=== PATIENT | female | born 1950 | race Caucasian/White ===

== ENCOUNTER → 2017-02-13 | Outpatient (CLI) | payer MEDICARE ==
--- NOTE | 2017-02-13 09:44 | BD ---
EXAMINATION TYPE: MG DEXA axial skeleton. DATE OF EXAM: 02/13/2017 9:06 AM COMPARISON: Prior DEXA bone scan January 26, 2015 CLINICAL HISTORY: Postmenopausal female Height: 61.7 IN Weight: 160 LBS FRAX RISK QUESTIONS: Alcohol (3 or more units per day): NO Family History (Parent hip fracture): NO Glucocorticoids (More than 3mos): NO (Ex: prednisone, prednisolone, methylprednisolone, dexamethasone, and hydrocortisone). History of Fracture in Adulthood: NO Secondary Osteoporosis: NO 1. Type 1 Diabetes: NO 2. Hyperthyroidism: NO 3. Menopause before 45: NO 4. Malnutrition: NO 5. Chronic liver disease: NO Rheumatoid Arthritis: NO Current Tobacco Use: NO RISK FACTORS HISTORY OF: Active: YES Postmenopausal woman: AGE 50 MEDICATIONS: Additional Medications: CALCIUM, VIT D, HIGH BLOOD PRESSURE MEDS EXAM MEASUREMENTS: Bone mineral densitometry was performed using the [employer] System. Bone mineral density as measured about the Lumbar spine is: ----- L1-L4(G/cm2): 1.101 T Score Values are as follows: ----- L2: -1.7 ----- L3: 0.3 ----- L4: 0.2 ----- L1-L4: -0.7 Bone mineral density has: Decreased -1.5% since study of: 01/26/2015 Bone mineral density about the R hip (g/cm2): 0.967 Bone mineral density about the L hip (g/cm2): 0.933 T Score values are as follows: -----R Neck: -0.5 -----L Neck: -0.8 -----R Intertrochanter: 0.3 -----L Intertrochanter: -0.1 Bone mineral density has: Decreased -4.3% since study of: 01/26/2015 IMPRESSION: Osteopenia (T Score between -2.5 and -1 as noted by T score values remains present at 2 consecutive l evels in the low back. Bone density is overall slightly decreased or diminished from prior exam. Ther e remains slightly increased risk of fracture and the patient may be considered for treatment. Re-Scr een 1-2 years. NOTE: T-SCORE=SD OF THE YOUNG ADULT MEAN.
--- NOTE | 2017-02-13 11:05 | MM ---
Reason for exam: screening (asymptomatic). Last mammogram was performed 6 months ago. History: Patient is postmenopausal and has history of other cancer at age 59. Physical Findings: A clinical breast exam by your physician is recommended on an annual basis and results should be correlated with mammographic findings. MG 3D Screening Mammo W/Cad Bilateral CC and MLO view(s) were taken. Prior study comparison: August 14, 2016, right breast MG 3d diag mammo w/cad RT. February 09, 2016, bilateral MG 3d screening mammo w/cad. There are scattered fibroglandular densities. Finding: There are typically benign round calcifications in both breasts. There is a chronic nodularity in the right breast. There is no discrete abnormality. ASSESSMENT: Benign, BI-RAD 2 RECOMMENDATION: Routine screening mammogram of both breasts in 1 year.
== END ==
LOC: RADMAMWWP 08:19
PROVIDERS: ATTEND Family Medicine
DX: Z12.31 Encounter for screening mammogram for malignant neoplasm of breast (principal); M85.88 Other specified disorders of bone density and structure, other site; Z13.820 Encounter for screening for osteoporosis
CPT/HCPCS: 77080; 77063; G0202

== ENCOUNTER → 2018-04-05 | Outpatient (CLI) | payer MEDICARE ==
--- NOTE | 2018-04-08 10:19 | MM ---
Reason for exam: screening (asymptomatic). Last mammogram was performed 1 year and 2 months ago. History: Patient is postmenopausal and has history of other cancer at age 59. Physical Findings: A clinical breast exam by your physician is recommended on an annual basis and results should be correlated with mammographic findings. MG Screening Mammo w CAD Bilateral CC and MLO view(s) were taken. Prior study comparison: February 13, 2017, bilateral MG 3d screening mammo w/cad. August 14, 2016, right breast MG 3d diag mammo w/cad RT. There are scattered fibroglandular densities. There is a stable right lower inner quadrant mass back to 2016. Benign calcifications in the right retroareolar breast. No suspicious abnormality. No significant changes when compared with prior studies. ASSESSMENT: Benign, BI-RAD 2 RECOMMENDATION: Routine screening mammogram of both breasts in 1 year.
== END | disposition home or self-care (01) ==
LOC: RADMAMWWP 08:38
PROVIDERS: ATTEND Family Medicine
DX: Z12.31 Encounter for screening mammogram for malignant neoplasm of breast (principal)
CPT/HCPCS: 77067

== ENCOUNTER → 2019-04-08 | Outpatient (CLI) | payer MEDICARE ==
--- NOTE | 2019-04-09 08:35 | MM ---
Reason for exam: screening (asymptomatic). Last mammogram was performed 1 year ago. History: Patient is postmenopausal and has history of other cancer at age 59. Physical Findings: A clinical breast exam by your physician is recommended on an annual basis and results should be correlated with mammographic findings. MG Screening Mammo w CAD Bilateral CC and MLO view(s) were taken. Prior study comparison: April 05, 2018, bilateral MG screening mammo w CAD. February 13, 2017, bilateral MG 3d screening mammo w/cad. There are scattered fibroglandular densities. There are benign appearing round calcifications bilaterally. There is no discrete abnormality. ASSESSMENT: Benign, BI-RAD 2 RECOMMENDATION: Routine screening mammogram of both breasts in 1 year.
== END ==
LOC: RADMAMWWP 09:00
PROVIDERS: ATTEND Family Medicine
DX: Z12.31 Encounter for screening mammogram for malignant neoplasm of breast (principal)
CPT/HCPCS: 77067

== ENCOUNTER → 2019-04-17 | Outpatient (CLI) | payer MEDICARE ==
--- NOTE | 2019-04-17 12:16 | BD ---
EXAMINATION TYPE: Axial Bone Density DATE OF EXAM: 04/17/2019 COMPARISON: 2017 CLINICAL HISTORY: Postmenopausal female Height: 61.75 Weight: 176 FRAX RISK QUESTIONS: Alcohol (3 or more units per day): no Family History (Parent hip fracture): n0 Glucocorticoids (More than 3mos): no (Ex: prednisone, prednisolone, methylprednisolone, dexamethasone, and hydrocortisone). History of Fracture in Adulthood: no Secondary Osteoporosis: 1. Type 1 Diabetes: no 2. Hyperthyroidism: no 3. Menopause before 45: no 4. Malnutrition: no 5. Chronic liver disease: no Rheumatoid Arthritis: no Current Tobacco Use: no RISK FACTORS HISTORY OF: Family History of Osteoporosis: Active: yes Diet low in dairy products/other sources of calcium: no Postmenopausal woman: yes Take estrogen and/or progesterone medications: no Lost more than 2 inches in height since high school: unsure Frequent falls: no Poor Health: no Hyperparathyroidism: no Adrenal Insufficiency: no MEDICATIONS: Prednisone or other steroids: no Thyroid Medications:no Osteoporosis Medications: YES Which medication: patient cannot recall How Long: since last bone density study Additional Medications: calcium & Vitamin D, blood pressure med Additional History: EXAM MEASUREMENTS: Bone mineral densitometry was performed using the [employer] System. Bone mineral density as measured about the Lumbar spine is: ----- L1-L4(G/cm2): 1.135 T Score Values are as follows: ----- L2: -1.3 ----- L3: 0.1 ----- L4: 0.7 ----- L1-L4: -0.4 Bone mineral density has: Increased 2.4% since study of: 02/13/2017 Bone mineral density about the R hip (g/cm2): 0.991 Bone mineral density about the L hip (g/cm2): 1.029 T Score values are as follows: -----R Neck: -0.3 -----L Neck: -0.1 -----R Total: 0.7 -----L Total: 0.5 Bone mineral density has: Increased 3.8% since study of: 02/13/2017 IMPRESSION: Normal (Values between +1 and -1 indicate normal bone mass). Consider repeating this study in 5 year s or sooner if there is some new clinical indication. NOTE: T-SCORE=SD OF THE YOUNG ADULT MEAN.
== END | disposition home or self-care (01) ==
LOC: RADBDWWP 09:08
PROVIDERS: ATTEND Family Medicine
DX: M85.88 Other specified disorders of bone density and structure, other site (principal)
CPT/HCPCS: 77080

== ENCOUNTER → 2020-09-02 | Outpatient (CLI) | payer MEDICARE ==
--- NOTE | 2020-09-02 17:44 | XR ---
EXAMINATION TYPE: XR ribs LT w pa chest xray DATE OF EXAM: 09/02/2020 CLINICAL HISTORY: [id number] LT RIB INJURY. Pain of the anterior mid and lower ribs after fall. TECHNIQUE: Frontal view of the chest and dedicated views of the left ribs obtained COMPARISON: None FINDINGS: The cardiomediastinal silhouette is within normal limits for size. Pulmonary vasculature i s normal. There is no focal air space opacity, pleural effusion, or pneumothorax seen. Degenerative c hanges of the spine. There may be nondisplaced rib fractures of left ribs 5 and 6 laterally. IMPRESSION: Possible nondisplaced rib fractures of left ribs 5 and 6 laterally.
== END | disposition home or self-care (01) ==
LOC: RADXRYALE 14:25
PROVIDERS: ATTEND Family Medicine
DX: R07.82 Intercostal pain (principal)

== ENCOUNTER → 2021-05-05 | Outpatient (CLI) | payer MEDICARE ==
--- NOTE | 2021-05-06 14:21 | MM ---
Reason for exam: screening (asymptomatic). Last mammogram was performed 2 years and 1 month ago. History: Patient is postmenopausal and has history of other cancer at age 59. Physical Findings: A clinical breast exam by your physician is recommended on an annual basis and results should be correlated with mammographic findings. MG Screening Mammo w CAD Bilateral CC and MLO view(s) were taken. Prior study comparison: April 08, 2019, bilateral MG screening mammo w CAD. April 05, 2018, bilateral MG screening mammo w CAD. There are scattered fibroglandular densities. There is no discrete abnormality. No significant changes when compared with prior studies. ASSESSMENT: Negative, BI-RAD 1 RECOMMENDATION: Routine screening mammogram of both breasts in 1 year.
== END | disposition home or self-care (01) ==
LOC: RADMAMWWP 08:36
PROVIDERS: ATTEND Family Medicine
DX: Z12.31 Encounter for screening mammogram for malignant neoplasm of breast (principal); Z78.0 Asymptomatic menopausal state; Z85.9 Personal history of malignant neoplasm, unspecified
CPT/HCPCS: 77067

== ENCOUNTER → 2022-05-16 | Outpatient (CLI) | payer MEDICARE ==
--- NOTE | 2022-05-17 09:30 | MM ---
Reason for Exam: Screening (asymptomatic). Last screening mammogram was performed 12 month(s) ago. Patient History: Menarche at age 15. First Full-Term at age 20. Left ovary removed at age 59. Right ovary removed at age 59. Hysterectomy at age 59. Postmenopausal. Other cancer, age 59. Risk Values: Ada 5 year model risk: 1.4%. NCI Lifetime model risk: 3.8%. Prior Study Comparison: 04/05/2018 Bilateral Screening Mammogram, [facility]. 04/08/2019 Bilateral Screening Mammogram, [facility]. 05/05/2021 Bilateral Screening Mammogram, [facility]. Tissue Density: There are scattered fibroglandular densities. Findings: Analyzed By CAD. A few scattered benign-appearing round calcifications in the bilateral breasts are present. Stable tiny well-defined 4 mm round mass in the right breast inferior medial aspect. Prominent skinfold medially left breast current study. There is no suspicious group of microcalcifications or new suspicious mass in either breast. Overall Assessment: Benign, BI-RAD 2 Management: Screening Mammogram of both breasts in 1 year. A clinical breast exam by your physician is recommended on an annual basis and results should be correlated with mammographic findings. Electronically signed and approved by: Noel Vee M.D.
== END | disposition home or self-care (01) ==
LOC: RADMAMWWP 10:53
PROVIDERS: ATTEND Family Medicine
DX: Z12.31 Encounter for screening mammogram for malignant neoplasm of breast (principal); Z78.0 Asymptomatic menopausal state
CPT/HCPCS: 77067

== ENCOUNTER → 2022-06-06 | Outpatient (CLI) | payer MEDICARE ==
--- NOTE | 2022-06-06 12:13 | BD ---
EXAMINATION TYPE: Axial Bone Density DATE OF EXAM: 06/06/2022 COMPARISON: NONE CLINICAL HISTORY: 72 years year old Female. ICD-10 CODE: M85.88 DISORDER OF BONE DENSITY Height: 5 FT 2 IN Weight: 171 FRAX RISK QUESTIONS: Alcohol (3 or more units per day): NO Family History (Parent hip fracture): NO Glucocorticoids (More than 3mos): NO (Ex: prednisone, prednisolone, methylprednisolone, dexamethasone, and hydrocortisone). History of Fracture in Adulthood: YES Secondary Osteoporosis: 1. Type 1 Diabetes: NO 2. Hyperthyroidism: NO 3. Menopause before 45: NO 4. Malnutrition: NO 5. Chronic liver disease: NO Rheumatoid Arthritis: NO Current Tobacco Use: NO RISK FACTORS HISTORY OF: Surgery to Spine/Hip(right/left)/Wrist (right/left): NO Family History of Osteoporosis: NO Active: YES Diet low in dairy products/other sources of calcium: NO Postmenopausal woman: YES Take estrogen and/or progesterone medications: NO Lost more than 2 inches in height since high school: NO Frequent falls: NO Poor Health: GOOD Hyperparathyroidism: NO Adrenal Insufficiency: NO MEDICATIONS: Additional Medications: BLOOD PRESSURE MEDS, Additional History: EXAM MEASUREMENTS: Bone mineral densitometry was performed using the [employer] System. Bone mineral density as measured about the Lumbar spine is: ----- L1-L4(G/cm2): 1.244 T Score Values are as follows: ----- L1: -0.3 ----- L2: 0.1 ----- L3: 1.5 ----- L4: 0.5 ----- L1-L4: 0.5 Bone mineral density has: INCREASED 11.0 % since study of: 2017 Bone mineral density about the R hip (g/cm2): 1.056 Bone mineral density about the L hip (g/cm2): 1.078 T Score values are as follows: -----R Neck: 0.1 -----L Neck: 0.3 -----R Total: 0.9 -----L Total: 0.5 Bone mineral density has: INCREASED 4.7 % since study of: 2017 FRAX%s: The graph provided illustrates a 10.9 % chance for a major osteoporotic fx and a 0.6 % chance for the hips probability for fx in 10 years time. IMPRESSION: Normal (Values between +1 and -1 indicate normal bone mass). Consider repeating this study in 5 year s or sooner if there is some new clinical indication. NOTE: T-SCORE=SD OF THE YOUNG ADULT MEAN.
== END | disposition home or self-care (01) ==
LOC: RADBDWWP 10:37
PROVIDERS: ATTEND Family Medicine
DX: M85.88 Other specified disorders of bone density and structure, other site (principal)
CPT/HCPCS: 77080

== ENCOUNTER → 2023-05-17 | Outpatient (CLI) | payer MEDICARE ==
--- NOTE | 2023-05-18 16:13 | MM ---
Reason for Exam: Screening (asymptomatic). Last screening mammogram was performed 12 month(s) ago. Patient History: Menarche at age 15. First Full-Term at age 20. Left ovary removed at age 59. Right ovary removed at age 59. Hysterectomy at age 59. Postmenopausal. Other cancer, age 59. Risk Values: Ada 5 year model risk: 1.4%. NCI Lifetime model risk: 3.6%. Prior Study Comparison: 04/08/2019 Bilateral Screening Mammogram, [facility]. 05/05/2021 Bilateral Screening Mammogram, [facility]. 05/16/2022 Bilateral MG screening mammo w CAD, [facility]. Tissue Density: There are scattered fibroglandular densities. Findings: Analyzed By CAD. Pattern appears symmetrical and stable. Scattered benign punctate calcifications are present bilaterally. No significant interval changes are evident. No suspicious groups of microcalcifications, spiculated or lobular masses, architectural distortion or other secondary signs of malignancy are mammographically apparent. Overall Assessment: Benign, BI-RAD 2 Management: Screening Mammogram of both breasts in 1 year. A negative mammogram report should not preclude additional follow up of suspicious palpable abnormalities. Patient should continue monthly self breast exam. A clinical breast exam by your physician is recommended on an annual basis and results should be correlated with mammographic findings. Electronically signed and approved by: Johnson Garcia D.O. Radiologis
== END | disposition home or self-care (01) ==
LOC: RADMAMWWP 09:15
PROVIDERS: ATTEND Family Medicine
DX: Z12.31 Encounter for screening mammogram for malignant neoplasm of breast (principal); Z78.0 Asymptomatic menopausal state
CPT/HCPCS: 77063; 77067

== ENCOUNTER → 2024-05-19 | Outpatient (CLI) | payer MEDICARE ==
--- NOTE | 2024-05-19 20:38 | MM ---
Reason for Exam: Screening (asymptomatic). Last screening mammogram was performed 12 month(s) ago. Patient History: Menarche at age 15. First Full-Term at age 20. Left ovary removed at age 59. Right ovary removed at age 59. Hysterectomy at age 59. Postmenopausal. Other cancer, age 59. Risk Values: Ada 5 year model risk: 1.4%. NCI Lifetime model risk: 3.3%. Prior Study Comparison: 05/05/2021 Bilateral Screening Mammogram, [facility]. 05/16/2022 Bilateral MG screening mammo w CAD, [facility]. 05/17/2023 Bilateral MG 3D screening mammo w/cad, [facility]. Tissue Density: There are scattered areas of fibroglandular density. Findings: Analyzed By CAD. The pattern is symmetrical. Scattered benign punctate calcifications are present bilaterally. No significant interval change is No suspicious groups of microcalcifications, spiculated or lobular masses, architectural distortion or other secondary signs of malignancy are mammographically apparent. Overall Assessment: Benign, BI-RAD 2 Management: Screening Mammogram of both breasts in 1 year. A negative mammogram report should not preclude additional follow up of suspicious palpable abnormalities. Patient should continue monthly self breast exam. A clinical breast exam by your physician is recommended on an annual basis and results should be correlated with mammographic findings. Note on Ada scores and lifetime risk: 1. A Ada score greater than 3% is considered moderate risk. If this is the case, consider specialist referral to assess eligibility for a risk reducing agent. 2. If overall lifetime risk for the development of breast cancer is 20% or higher, the patient may qualify for future screening with alternating mammogram and breast MRI. Electronically signed and approved by: Johnson Garcia D.O. Radiologis
== END | disposition home or self-care (01) ==
LOC: RADMAMWWP 13:42
PROVIDERS: ATTEND Family Medicine
DX: Z12.31 Encounter for screening mammogram for malignant neoplasm of breast (principal); Z78.0 Asymptomatic menopausal state
CPT/HCPCS: 77063; 77067

== ENCOUNTER → 2024-07-17 | Outpatient (CLI) | payer MEDICARE ==
--- NOTE | 2024-07-21 10:01 | MR ---
EXAMINATION TYPE: MR shoulder LT wo con DATE OF EXAM: 07/17/2024 COMPARISON: No radiographic correlation available HISTORY: 74-year-old female M25.512, R53.1 Left shoulder pain TECHNIQUE: Multiplanar, multisequence imaging of the left shoulder is performed without contrast. FINDINGS: Nonvisualization of the long head biceps tendon. It may be chronically torn. The subscapularis tendon remains intact. Severe degenerative change of the AC joint with prominent marginal spurring and capsular hypertrophy and reactive subchondral marrow signal change. There is also large full-thickness tear of the entire supraspinatus tendon extending to involve most of the infraspinatus tendon. The posterior infraspinatus tendon fibers are very heterogeneous. Stump retraction by 3.8 cm nearly to the glenoid. There is secondary glenohumeral joint instability with hager perior subluxation and near abutment to the underside of the acromion. Moderate fatty atrophy of both supraspinatus and infraspinatus muscle bellies along with reactive mus maci edema. Mild effusion within the subacromial bursa. Glenohumeral joint shows moderate to severe diffuse thinning of articular cartilage along the superio r and mid aspect of the joint along with marginal spurring. Diffusely degenerative and torn glenoid labrum. Small to moderate joint effusion. No Hill-Sachs deformity or os acromiale. No suspicious bone marrow replacement. IMPRESSION: 1. Large full-thickness tear involving the entire supraspinatus tendon and most of the infraspinatus tendon. There is moderate fatty atrophy of both muscle bellies and stump retracted by 3.8 cm nearly t o the glenoid. Additionally, reactive muscle edema suggests acute on chronic tears. 2. Secondary glenohumeral joint instability with high riding humeral head at least moderate rotator c uff arthropathy. 3. Severe AC joint OA. 4. Long head biceps tendon not visualized, likely chronically torn. [facility], , 07/21/2024 9:59 AM
== END | disposition home or self-care (01) ==
LOC: RADMRIMAIN 08:12
PROVIDERS: ATTEND Family Medicine
DX: R53.1 Weakness (principal); R60.9 Edema, unspecified; M75.122 Complete rotator cuff tear or rupture of left shoulder, not specified as traumatic; M19.012 Primary osteoarthritis, left shoulder

== ENCOUNTER → 2024-10-08 | Outpatient (CLI) | payer MEDICARE ==
--- NOTE | 2024-10-08 15:54 | BD ---
EXAMINATION TYPE: Axial Bone Density DATE OF EXAM: 10/08/2024 CLINICAL HISTORY: 74 years old Female. ICD-10 CODE: Z78.0 Postmenopausal , Additional History: Height: 60.4 in Weight: 153 lbs FRAX RISK QUESTIONS: History of Fracture in Adulthood: lt rib fx age 70 MEDICATIONS: Osteoporosis Medications: yes Which medication: ibandronate How Lon years EXAM MEASUREMENTS: Bone mineral densitometry was performed using the [employer] System. Bone mineral density as measured about the Lumbar spine is: ----- L1-L4(G/cm2): 1.262 T Score Values are as follows: ----- L1: -0.5 ----- L2: -0.1 ----- L3: 1.6 ----- L4: 1.2 ----- L1-L4: 0.7 Z Score Values are as follows: ----- L1: 1.1 ----- L2: 1.5 ----- L3: 3.2 ----- L4: 2.8 ----- L1-L4: 2.3 Bone mineral density has: Increased 1.4% since study of: 06/06/2022 Bone mineral density about the R hip (g/cm2): 1.109 Bone mineral density about the L hip (g/cm2): 1.062 T Score values are as follows: -----R Neck: 0.4 -----L Neck: 0.5 -----R Total: 0.8 -----L Total: 0.4 Z Score values are as follows: -----R Neck: 2.3 -----L Neck: 2.3 -----R Total: 2.4 -----L Total: 2.0 Bone mineral density has: Decreased -1.0% since study of: 06/06/2022 FRAX%s: The graph provided illustrates a 10.3% chance for a major osteoporotic fx and a 0.6% chance f or the hips probability for fx in 10 years time. IMPRESSION: Normal (Values between +1 and -1 indicate normal bone mass). Consider repeating this study in 5 year s or sooner if there is some new clinical indication. NOTE: T-SCORE=SD OF THE YOUNG ADULT MEAN. [facility], , 10/08/2024 3:51 PM
== END | disposition home or self-care (01) ==
LOC: RADBDWWP 14:51
PROVIDERS: ATTEND Family Medicine
DX: Z78.0 Asymptomatic menopausal state (principal)
CPT/HCPCS: 77080